=== PATIENT | female | born 1950 | race Caucasian/White ===

== ENCOUNTER 2023-03-28 10:01 | Outpatient (REF) | payer MEDICARE, MEDICAID, SELFPAY ==
[2023-03-28 15:34] LABS: Alanine Aminotransferase 21 U/L (0-31); Albumin Level 4.3 g/dL (3.5-5.0); Alkaline Phosphatase 79 U/L (39-117); Aspartate Amino Transferase 25 U/L (5-31); Bilirubin Direct 0.2 mg/dL (0.0-0.5); Bilirubin Total 0.6 mg/dL (0.0-1.0); Total Protein 7.2 g/dL (6.5-8.0)
== END 2023-03-28 10:02 | disposition home or self-care (01) ==
LOC: HO.CHCLDS 10:01
PROVIDERS: Visit Provider Emergency Medicine
DX: F10.99 Alcohol use, unspecified with unspecified alcohol-induced disorder (principal)
CPT/HCPCS: 36415; 80076